=== PATIENT | male | born 1940 | race Hispanic/Latino ===

== ENCOUNTER 2017-08-10 13:04 | Observation (INO) | payer OTHER ==
[~2017-08-10] VITALS: Ht 160 cm; Wt 80.3 kg
[2017-08-10 13:48] LABS: BILIRUBIN,URINE NEGATIVE (NEGATIVE); CLARITY,URINE CLEAR (CLEAR); COLOR,URINE YELLOW (YELLOW); KETONES,URINE NEGATIVE (NEGATIVE); LEUKOCYTE ESTERASE ,URINE NEGATIVE (NEGATIVE); NITRITE,URINE NEGATIVE (NEGATIVE); PROTEIN,URINE DIPSTICK 1+ (NEGATIVE); URINE UROBILINOGEN 0.2 mg/dL (0.2 - 1)
[2017-08-10 14:08] LABS: BACTERIA,URINE RARE /HPF; WBC,URINE (MAN) 0-5 /HPF (0-5)
[2017-08-10 14:09] LABS: AMORPHOUS SEDIMENT,URINE FEW (FEW); EPITHELIAL CELLS,URINE FEW /LPF
--- NOTE | 2017-08-10 14:09 | Diagnostic Imaging Report ---
PROCEDURE: A single AP view of the chest. COMPARISON: None. INDICATIONS: HISTORY OF STROKE, VERTIGO FINDINGS: Lines/tubes: None. Lungs: The lungs are well inflated and clear. There is no evidence of pneumonia or pulmonary edema. Pleura: There is no pleural effusion or pneumothorax. Heart and mediastinum: Cardiac silhouette is unremarkable. Pulmonary vasculature is normal. Atherosclerotic calcification aortic arch. Bones: No acute bony abnormality. Mild degenerative changes in the thoracic spine and bilateral glenohumeral joints. IMPRESSION: 1. No acute cardiopulmonary abnormalities Prudencio Nunez M.D. Dictated by: Prudencio Nunez M.D. on 08/10/2017 at 14:10 Electronically approved by: Prudencio Nunez M.D. on 08/10/2017 at 14:10
[2017-08-10 14:22] LABS: BASOPHILS % 0.7 % (0.0-1.0); EOSINOPHILS # (AUTO) 0.3 (0.0-0.4); EOSINOPHILS % 4.7 % (0.0-6.0); HEMATOCRIT 42.1 % (38.2-49.6); LYMPHOCYTES # (AUTO) 1.1 (1.0-3.2); LYMPHOCYTES % 19.4 % (18.0-39.1); MEAN CORPUSCULAR HGB CONC 33.3 g/dL (31-35); MEAN CORPUSCULAR VOLUME 87.2 fL (81-99); MONOCYTES # (AUTO) 0.5 (0.2-0.8); NEUTROPHILS # (AUTO) 3.9 (2.1-6.9); NEUTROPHILS % 66.7 % (38.7-80.0); PLATELET COUNT 257 x10e3/uL (140-360); RED BLOOD COUNT 4.83 x10e6/uL (4.3-5.7); RED CELL DISTRIBUTION WIDTH 14.3 % (11.7-14.4)
--- NOTE | 2017-08-10 14:33 | Diagnostic Imaging Report ---
Examination: CT BRAIN WITHOUT CONTRAST History:Vertigo. Headache. Blurred vision. Rule out stroke. Comparison studies:None Technique: Axial images were obtained from the skull base to the vertex. Coronal and sagittal images reconstructed from the axial data. Intravenous contrast: None Findings: Scalp: No abnormalities. Bones: No fractures, blastic or lytic lesions. Brain sulci: Mild volume loss for age. Ventricles: No hydrocephalus. Extra-axial space: No abnormalities. Parenchyma: There are confluent areas of hypoattenuation in the periventricular and subcortical white matter, nonspecific. No masses, hemorrhage, or acute or chronic cortical based vascular insults. Chronic lacunar infarcts are demonstrated in the right givens radiata and left subinsular cortex. Sellar/suprasellar region: Partially CSF filled. Craniocervical junction: Patent foramen magnum. No Chiari one malformation. Incidental findings: None. Impression: 1. No acute intracranial abnormalities. 2. Chronic lacunar infarcts, as above. 3. Moderate chronic microvascular ischemic change. Signed by: Dr. Ofelia Blanton M.D. on 08/10/2017 2:29 PM
[2017-08-10 14:35] LABS: INR 1.14; PROTHROMBIN TIME 13.7 seconds (11.9-14.5)
[2017-08-10 14:36] LABS: PARTIAL THROMBOPLASTIN TIME 29.2 seconds (23.8-35.5)
[2017-08-10 14:42] LABS: ALBUMIN 4.3 g/dL (3.5-5.0); ALBUMIN/GLOBULIN RATIO 1.2 (0.8-2.0); ANION GAP 13.5 mmol/L (8-16); CALCIUM 9.1 mg/dL (8.4-10.2); CREATININE, SERUM 1.17 mg/dL (0.72-1.25); POTASSIUM 3.5 mmol/L (3.5-5.1)
[2017-08-10 14:50] LABS: CREATINE KINASE MB 5.8 ng/mL (0-5.0)
--- NOTE | 2017-08-10 15:58 | Diagnostic Imaging Report ---
Examination: MRI BRAIN WITHOUT CONTRAST History: Headache. Evaluate for stroke. Comparison studies: Head CT performed earlier today. Technique: Sagittal T2; axial DWI, FLAIR, GRE or SWI, T1, Coronal FLAIR. Intravenous contrast: None Findings: Scalp: No abnormal signal. No masses. Bone marrow: Normal in signal intensity. Brain volume: Mild volume loss. Ventricles: No hydrocephalus. Extra-axial spaces: No abnormalities. Parenchyma: There are patchy and confluent areas of T2/FLAIR hyperintensity in the periventricular and subcortical white matter, nonspecific. Chronic lacunar infarcts are again demonstrated in the right givens radiata and left subinsular cortex No masses, hemorrhage, acute or chronic vascular insults. Suprasellar and sellar region: No abnormalities. Craniocervical junction: No abnormalities. The foramen magnum is patent. No Chiari malformations. Vessels: Normal flow-voids in the arteries and sinuses. Additional findings:Mild inflammatory mucosal thickening of the bilateral ethmoid air cells and maxillary sinuses. IMPRESSION: 1. No new or acute intracranial abnormalities. No change from prior head CT performed earlier today and when accounting for differences in imaging modality. 2. Unchanged moderate chronic microvascular ischemic change. 3. Unchanged chronic lacunar infarcts, as above. Signed by: Dr. Ofelia Blanton M.D. on 08/10/2017 3:51 PM
--- OUTSIDE RECORDS SUMMARY | 2017-08-10 17:07 | XMS REPORT ---
[facility] Address Unknown Phone Unavailable Care Team Providers Care Terminal Make Up Operator Name Role Phone FIDENCIO MARISCAL Unavailable Unavailable Problems This patient has no known problems. Allergies, Adverse Reactions, Alerts This patient has no known allergies or adverse reactions. Medications This patient has no known medications. Results Test Description Test Time Test Comments Text Results Atomic Results Result Comments MRI BRAIN WO [place] [address] Patient Name: DOM MONACO MR #: [id number] : 1940 Age/Sex: 77/M Req #: [id number] Adm Physician: Ordered by: KANDICE NUÑEZ [employer] Report #: [id number] Location: ER Room/Bed: Procedure: [id number] MRI/MRI BRAIN WO Exam Date: Exam Time: REPORT STATUS: Signed Examination: MRI BRAIN WITHOUT CONTRAST History: Headache. Evaluate for stroke. Comparison studies: Head CT performed earlier today. Technique: Sagittal T2; axial DWI, FLAIR, GRE or SWI, T1, Coronal FLAIR. Intravenous contrast: None Findings: Scalp: No abnormal signal. No masses. Bone marrow: Normal in signal intensity. Brain volume: Mild volume loss. Ventricles: No hydrocephalus. Extra-axial spaces: No abnormalities. Parenchyma: There are patchy and confluent areas of T2/FLAIR hyperintensity in the periventricular and subcortical white matter, nonspecific. Chronic lacunar infarcts are again demonstrated in the right givens radiata and left subinsular cortex No masses, hemorrhage, acute or chronic vascular insults. Suprasellar and sellar region: No abnormalities. Craniocervical junction: No abnormalities. The foramen magnum is patent. No Chiari malformations. Vessels: Normal flow- voids in the arteries and sinuses. Additional findings:Mild inflammatory mucosal thickening of the bilateral ethmoid air cells and maxillary sinuses. IMPRESSION: 1. No new or acute intracranial abnormalities. No change from prior head CT performed earlier today and when accounting for differences in imaging modality. 2. Unchanged moderate chronic microvascular ischemic change. 3. Unchanged chronic lacunar infarcts, as above. Signed by: Dr. Ofelia Blanton M.D. on 08/10/2017 3:51 PM Dictated By: OFELIA ZAMBRANO MD 50 Transcribed By: CALLY on 08/10/171550 COPY TO: KANDICE NUÑEZ NP CHEST SINGLE (PORTABLE) [place] [address] Patient Name: DOM MONACO MR #: [id number] : 1940 Age/Sex: 77/M Req #: [id number] Adm Physician: Ordered by: KANDICE NUÑEZ NP Report #: [id number] Location: ER Room/Bed: Procedure: [id number] DX/CHEST SINGLE (PORTABLE) Exam Date: Exam Time: REPORT STATUS: Signed PROCEDURE: A single AP view of the chest. COMPARISON: None. INDICATIONS: HISTORY OF STROKE, VERTIGO FINDINGS: Lines/tubes: None. Lungs: The lungs are well inflated and clear. There is no evidence of pneumonia or pulmonary edema. Pleura: There is no pleural effusion or pneumothorax. Heart and mediastinum: Cardiac silhouette is unremarkable. Pulmonary vasculature is normal. Atherosclerotic calcification aortic arch. Bones: No acute bony abnormality. Mild degenerative changes in the thoracic spine and bilateral glenohumeral joints. IMPRESSION: 1. No acute cardiopulmonary abnormalities Erin Nunez M.D. Dictated by : Erin Nunez M.D. on 08/10/2017 at 14:10 Electronically approved by: Erin Nunez M.D. on 08/10/2017 at 14:10 Dictated By : ERIN NUNEZ MD 1410 Transcribed By: ROME on 08/10/17 1410 COPY TO: KANDICE NUÑEZ NP CT BRAIN WO [place] [address] Patient Name: DOM MONACO MR #: [id number] : 1940 Age/Sex: 77/M Req #: [id number] Adm Physician: Ordered by: KANDICE NUÑEZ NP Report #: [id number] Location: ER Room/Bed: Procedure: [id number] CT/CT BRAIN WO Exam Date: 08/10/17 Exam Time: 1320 REPORT STATUS: Signed Examination: CT BRAIN WITHOUT CONTRAST History:Vertigo. Headache. Blurred vision. Rule out stroke. Comparison studies:None Technique: Axial images were obtained from the skull base to the vertex. Coronal and sagittal images reconstructed from the axial data. Intravenous contrast: None Findings: Scalp: No abnormalities. Bones: No fractures, blastic or lytic lesions. Brain sulci : Mild volume loss for age. Ventricles: No hydrocephalus. Extra-axial space: No abnormalities. Parenchyma: There are confluent areas of hypoattenuation in the periventricular and subcortical white matter, nonspecific. No masses, hemorrhage, or acute or chronic cortical based vascular insults. Chronic lacunar infarcts are demonstrated in the right givens radiata and left subinsular cortex. Sellar/suprasellar region: Partially CSF filled. Craniocervical junction: Patent foramen magnum. No Chiari one malformation. Incidental findings: None. Impression: 1. No acute intracranial abnormalities. 2. Chronic lacunar infarcts, as above. 3. Moderate chronic microvascular ischemic change. Signed by: Dr. Ofelia Blanton M.D. on 08/10/2017 2:29 PM Dictated By: OFELIA ZAMBRANO MD 142 COPY TO: KANDICE NUÑEZ NP
[2017-08-10 21:57] VITALS: BP 157/99
[2017-08-10 22:41] LABS: CREATINE KINASE MB 4.8 ng/mL (0-5.0)
[2017-08-10] MEDS ORDERED: ACETAMINOPHEN/CODEINE 300MG - 30MG TAB PO PRN (22:45)
[2017-08-10] MEDS ORDERED: CETIRIZINE-PSE1 EACH PO (22:45)
[2017-08-10] MEDS ORDERED: TYLENOL WITH C1 EACH PO (22:45)
[2017-08-10] MEDS ORDERED: CLONIDINE HCL0.1 MG PO (22:45)
[2017-08-10] MEDS ORDERED: CLOTRIMAZOLE15 GM TOP (22:45)
[2017-08-10] MEDS ORDERED: METFORMIN HCL500 MG PO (22:45)
[2017-08-10] MEDS ORDERED: GABAPENTIN300 MG PO (22:45)
[2017-08-10] MEDS ORDERED: LISINOPRIL10 MG PO (22:45)
[2017-08-10] MEDS ORDERED: PRAVASTATIN SOD20 MG PO (22:45)
[2017-08-10] MEDS ORDERED: MECLIZINE HCL 12.5 MG TAB PO PRN (22:45)
[2017-08-10] MEDS ORDERED: GLIMEPIRIDE2 MG PO (22:45)
[2017-08-10] MEDS ORDERED: FENOFIBRATE145 MG PO (22:45)
[2017-08-10] MEDS ORDERED: LEVOTHYROXINE50 MCG PO (22:45)
[2017-08-10] MEDS ORDERED: MECLIZINE HCL12.5 MG PO (22:45)
[2017-08-10] MEDS ORDERED: BACLOFEN10 MG PO (22:45)
[2017-08-10] MEDS ORDERED: AMLODIPINE BESY10 MG PO (22:45)
[2017-08-10 22:49] VITALS: BP 157/99
[2017-08-11] VITALS: BP 120/76
[2017-08-11 00:57] VITALS: BP 157/99
[2017-08-11 04:00] VITALS: BP 130/80
[2017-08-11] MEDS ORDERED: LEVOTHYROXINE SODIUM 50 MCG TAB PO SCH (06:00)
[2017-08-11 06:10] LABS: BASOPHILS # (AUTO) 0.1 (0.0-0.1); BASOPHILS % 0.9 % (0.0-1.0); EOSINOPHILS # (AUTO) 0.4 (0.0-0.4); EOSINOPHILS % 7.7 % (0.0-6.0); HEMATOCRIT 44.2 % (38.2-49.6); HEMOGLOBIN 14.6 g/dL (14.0-18.0); LYMPHOCYTES # (AUTO) 1.4 (1.0-3.2); LYMPHOCYTES % 23.9 % (18.0-39.1); MEAN CORPUSCULAR HEMOGLOBIN 29.3 pg (28-32); MEAN CORPUSCULAR VOLUME 88.8 fL (81-99); MONOCYTES # (AUTO) 0.5 (0.2-0.8); MONOCYTES % 9.2 % (4.4-11.3); NEUTROPHILS # (AUTO) 3.3 (2.1-6.9); NEUTROPHILS % 57.6 % (38.7-80.0); PLATELET COUNT 258 x10e3/uL (140-360); RED BLOOD COUNT 4.98 x10e6/uL (4.3-5.7); RED CELL DISTRIBUTION WIDTH 14.2 % (11.7-14.4)
[2017-08-11 06:43] LABS: ALANINE AMINOTRANSFERASE 27 IU/L (0-55); ALBUMIN 4.1 g/dL (3.5-5.0); ALBUMIN/GLOBULIN RATIO 1.1 (0.8-2.0); ALKALINE PHOSPHATASE 47 IU/L (40-150); ANION GAP 13.8 mmol/L (8-16); BLOOD UREA NITROGEN 16 mg/dL (7-26); BUN/CREATININE RATIO 14 (6-25); CALCIUM 9.2 mg/dL (8.4-10.2); CARBON DIOXIDE 28 mmol/L (22-29); CHLORIDE 105 mmol/L (98-107); CREATINE KINASE 411 IU/L (30-200); CREATININE, SERUM 1.12 mg/dL (0.72-1.25); EST GLOMERULAR FILTRATION RATE > 60 ML/MIN (60-); GLUCOSE 87 mg/dL (74-118); POTASSIUM 3.8 mmol/L (3.5-5.1); SODIUM 143 mmol/L (136-145)
[2017-08-11] MEDS ORDERED: GLIMEPIRIDE 2 MG TAB PO SCH ×2 (07:30→17:00)
[2017-08-11] MEDS ORDERED: METFORMIN HCL 500 MG TAB PO SCH (08:00)
[2017-08-11 08:42] VITALS: BP 134/82
[2017-08-11] MEDS ORDERED: CLONIDINE HCL 0.1 MG TAB PO SCH (09:00)
[2017-08-11] MEDS ORDERED: FENOFIBRATE 145 MG TAB PO SCH (09:00)
[2017-08-11] MEDS ORDERED: BACLOFEN 10 MG TAB PO SCH (09:00)
[2017-08-11] MEDS ORDERED: GABAPENTIN 300 MG CAP PO SCH (09:00)
[2017-08-11] MEDS ORDERED: LISINOPRIL 20 MG TAB PO SCH (09:00)
[2017-08-11] MEDS ORDERED: AMLODIPINE BESYLATE 10 MG TAB PO SCH (09:00)
[2017-08-11] MEDS ORDERED: LORATADINE/PSEUDOEPHEDRINE 24 HR SR TAB PO SCH (09:00)
[2017-08-11] MEDS ORDERED: CLOTRIMAZOLE 1% CR 15 GM TOP SCH (09:00)
--- NOTE | 2017-08-11 10:35 | Discharge Summary ---
The patient was on observation. FINAL DIAGNOSES 1. Generalized weakness with near syncope. Workup otherwise negative. 2. Multiple baseline problems. SUMMARY: Patient is a 77-year-old male with some complaint of generalized weakness. The patient has symptoms of visual changes, blurred vision and some near fainting spell but did not pass out. The patient was stable. Upon arriving in the emergency room, everything was subsequently normalized. The patient has no nausea or vomiting, no hearing loss. Vision was back to normal and no focal deficit. The patient is otherwise stable. The patient had multiple tests done including imaging of the brain, MRI and CT scan of the brain, and also chest x-ray. Otherwise, no acute finding. On his CBC, WBC was 5.7, hemoglobin 14.6, hematocrit 44, platelets 258, otherwise unremarkable as well. Sodium is 143, potassium 3.8, chloride 105, bicarb 20, BUN 16, creatinine 1.1. Glucose is 87. The patient has no abnormal cardiac enzymes. The patient is stable. He is wanting to go home today, and I agree. The patient will discharge home. On his discharge medications, he will continue with his home medication. I have suggested the patient to cut back on gabapentin to twice a day instead of 3 times a day. Will add on baby aspirin once a day. The patient is otherwise stable. He will follow up with his family doctor as an outpatient. Job#: [id number] POLO
[2017-08-11 11:56] VITALS: BP 130/84
[2017-08-11] MEDS ORDERED: SIMVASTATIN 20 MG TAB PO SCH (21:00)
== END 2017-08-11 12:32 | disposition home or self-care (01) ==
LOC: ER 13:04 → ERHOLD 17:05 → IMCU 20:52
PROVIDERS: ADMIT Internal Medicine; ATTEND Internal Medicine
DX: R55 Syncope and collapse (principal); R53.1 Weakness; R42 Dizziness and giddiness; E11.42 Type 2 diabetes mellitus with diabetic polyneuropathy; Z86.73 Personal history of transient ischemic attack (TIA), and cerebral infarction without residual deficits; H53.8 Other visual disturbances
CPT/HCPCS: 36415 ×2; 70450; 70551; 71045; 80053 ×2; 81001; 82140; 82550 ×2; 82553 ×2; 83880; 84484 ×2; 85025 ×2; 85610; 85730; 93005; 97139; 99284; G0378 ×2

== ENCOUNTER 2020-08-17 11:44 | Emergency (ER) | payer OTHER ==
[~2020-08-17] VITALS: Ht 160 cm; Wt 88.5 kg
[~2020-08-17 11:44] MED LIST: AMLODIPINE BESY10 MG PO; BACLOFEN10 MG PO; CETIRIZINE-PSE1 EACH PO; CLONIDINE HCL0.1 MG PO; CLOTRIMAZOLE15 GM TOP; FENOFIBRATE145 MG PO; GABAPENTIN300 MG PO; GLIMEPIRIDE2 MG PO; LEVOTHYROXINE50 MCG PO; LISINOPRIL10 MG PO; MECLIZINE HCL12.5 MG PO; METFORMIN HCL500 MG PO; PRAVASTATIN SOD20 MG PO; TYLENOL WITH C1 EACH PO
[2020-08-17] MEDS ORDERED: DEXAMETHASONE SOD PHOS 10 MG/1 ML VIAL IV ONE (12:30)
[2020-08-17] MEDS ORDERED: DECADRON4 M1 PO (12:43)
[2020-08-17 13:05] VITALS: BP 134/75
== END 2020-08-17 13:06 | disposition home or self-care (01) ==
LOC: ER 11:46
DX: U07.1 COVID-19 (principal); R50.9 Fever, unspecified; R05 Cough; R43.8 Other disturbances of smell and taste; I10 Essential (primary) hypertension; E11.9 Type 2 diabetes mellitus without complications; E78.5 Hyperlipidemia, unspecified
CPT/HCPCS: 99282; J1100